=== PATIENT | female | born 2000 | race African-American/Black ===

== ENCOUNTER 2019-04-03 19:14 | Emergency (ER) | payer OTHER ==
[~2019-04-03] VITALS: Ht 167.6 cm; Wt 73.5 kg
[2019-04-03] MEDS ORDERED: IBUPROFEN 600 MG TAB PO STA (19:44)
[2019-04-03] MEDS ORDERED: KETOROLAC TROME10 MG PO (19:46)
[2019-04-03] MEDS ORDERED: IBUPROFEN 200 MG TAB ONE (19:50)
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
[2019-04-03] MEDS ORDERED: CYCLOBENZAPRINE5 MG PO (20:48)
== END 2019-04-03 21:25 | disposition home or self-care (01) ==
LOC: FSED 19:14
DX: S00.83XA Contusion of other part of head, initial encounter (principal); V43.52XA Car driver injured in collision with other type car in traffic accident, initial encounter; Y92.410 Unspecified street and highway as the place of occurrence of the external cause
CPT/HCPCS: 70486; 72125; 99283

== ENCOUNTER 2020-05-01 21:30 | Emergency (ER) | payer SELFPAY ==
[~2020-05-01] VITALS: Ht 167.6 cm; Wt 73.5 kg
[~2020-05-01 21:30] MED LIST: CYCLOBENZAPRINE5 MG PO; KETOROLAC TROME10 MG PO
[2020-05-01] MEDS ORDERED: ONDANSETRON HCL INJ 2MG/ML 2ML 2 MG/ML VIAL IV STA (21:59)
[2020-05-01] MEDS ORDERED: SODIUM CHLORIDE 0.9% 1000ML 1,000 ML IV ONE (22:00)
[2020-05-01 22:18] LABS: BASOPHILS % 0.4 % (0.0-1.0); EOSINOPHILS # (AUTO) 0.1 (0.0-0.4); EOSINOPHILS % 0.5 % (0.0-6.0); HEMATOCRIT 39.4 % (34.2-44.1); HEMOGLOBIN 12.9 g/dL (12.0-16.0); LYMPHOCYTES # (AUTO) 2.3 (1.0-3.2); LYMPHOCYTES % 20.4 % (18.0-39.1); MEAN CORPUSCULAR HGB CONC 32.7 g/dL (31-35); MEAN CORPUSCULAR VOLUME 82.4 fL (81-99); MONOCYTES # (AUTO) 0.8 (0.2-0.8); MONOCYTES % 6.7 % (4.4-11.3); NEUTROPHILS # (AUTO) 8.2 (2.1-6.9); NEUTROPHILS % 71.6 % (38.7-80.0); PLATELET COUNT 268 x10e3/uL (140-360); RED BLOOD COUNT 4.78 x10e6/uL (3.6-5.1)
[2020-05-01 22:35] LABS: ANION GAP 13.4 mmol/L (8-16); BLOOD UREA NITROGEN 5 mg/dL (7-26); BUN/CREATININE RATIO 8 (6-25); CALCIUM 9.2 mg/dL (8.4-10.2); CARBON DIOXIDE 24 mmol/L (22-29); CHLORIDE 101 mmol/L (98-107); EST GLOMERULAR FILTRATION RATE > 60 ML/MIN (60-); GLUCOSE 78 mg/dL (74-118); POTASSIUM 3.4 mmol/L (3.5-5.1); SODIUM 135 mmol/L (136-145)
[2020-05-01 22:59] LABS: BILIRUBIN,URINE NEGATIVE (NEGATIVE); CLARITY,URINE CLOUDY (CLEAR); COLOR,URINE YELLOW (YELLOW); KETONES,URINE NEGATIVE (NEGATIVE); LEUKOCYTE ESTERASE ,URINE LARGE (NEGATIVE); NITRITE,URINE NEGATIVE (NEGATIVE); PROTEIN,URINE DIPSTICK 1+ (NEGATIVE); URINE UROBILINOGEN 1 mg/dL (0.2 - 1)
--- NOTE | 2020-05-01 23:04 | Emergency Department Note ---
History of Present Illnes History of Present Illness Chief Complaint: Abdominal Complaints History of Present Illness This is a 20 year old female PRESENTS TO THE ER C/O LOWER ABD PAIN AND N/V SINCE FINDING OUT SHE WAS ; REPORTS UNABLE TO KEEP ANY FOOD OR LIQUIDS DOWN; PT 6 WEEKS ; LNMP 03/12/20L ; NAD NOTED AT THIS TIME; . Historian: Patient Arrival Mode: Car Onset (how long ago): week(s) (6) Location: LOWER ABD Quality: DISCOMFORT, VOMITING Radiation: Reports non-radiation Severity: mild Onset quality: gradual Duration (how long): week(s) (6) Progression: unchanged Chronicity: recurrent Context: Denies recent illness, Denies recent surgery Relieving factors: none Exacerbating factors: none Associated symptoms: Reports denies other symptoms Treatments prior to arrival: none Past Medical/Family History Physician Review I have reviewed the patient's past medical and family history. Any updates have been documented here. Past Medical History Recent Fever: No Clinical Suspicion of Infectio: No New/Unexplained Change in Ment: No Past Medical History: None Past Surgical History: None Other Surgery: RT ANKLE SX Social History Smoking Cessation: Former smoker Alcohol Use: None Physically hurt or threatened: No Family History Family history of heart diseas: No Other Last Tetanus: UTD Review of Systems Review of Systems Constitutional: Reports no symptoms EENTM: Reports no symptoms Cardiovascular: Reports no symptoms Respiratory: Reports no symptoms Gastrointestinal: Reports as per HPI Genitourinary: Reports as per HPI Musculoskeletal: Reports no symptoms Integumentary: Reports no symptoms Neurological: Reports no symptoms Psychological: Reports no symptoms Endocrine: Reports no symptoms Hematological/Lymphatic: Reports no symptoms Physical Exam Related Data Allergies: Coded Allergies: No Known Allergies (Unverified , 04/03/19) Triage Vital Signs Vital Signs Date Time Temp Pulse Resp B/P (MAP) Pulse Ox O2 Delivery O2 Flow Rate FiO2 05/01/20 21:55 99.0 82 16 100 Room Air Vital signs reviewed: Yes Physical Exam CONSTITUTIONAL Constitutional: Present well-developed, Present well-nourished HENT HENT: Present normocephalic, Present atraumatic, Present oropharynx clear/moist, Present nose normal HENT L/R: Present left ext ear normal, Present right ext ear normal EYES Eyes: Reports PERRL, Reports conjunctivae normal NECK Neck: Present ROM normal PULMONARY Pulmonary: Present effort normal, Present breath sounds normal CARDIOVASCULAR Cardiovascular: Present regular rhythm, Present heart sounds normal, Present capillary refill normal, Present normal rate GASTROINTESTINAL Abdominal: Present soft, Present nontender, Present bowel sounds normal GENITOURINARY Genitourinary: Present exam deferred SKIN Skin: Present warm, Present dry MUSCULOSKELETAL Musculoskeletal: Present ROM normal NEUROLOGICAL Neurological: Present alert, Present oriented x 3, Present no gross motor or sensory deficits PSYCHOLOGICAL Psychological: Present mood/affect normal, Present judgement normal Results Laboratory Result Diagram: 05/01/20220405/01/202204 Laboratory Laboratory Tests Test 05/01/20 22:50 05/01/20 22:05 Urine Color Yellow (YELLOW) Urine Clarity Cloudy (CLEAR) Urine pH 7.5 (5 - 7) Urine Specific [place] 1.025 (1.010-1.025) Urine Protein 1+ (NEGATIVE) Urine Glucose (UA) Negative (NEGATIVE) Urine Ketones Negative (NEGATIVE) Urine Blood Negative (NEGATIVE) Urine Nitrite Negative (NEGATIVE) Urine Bilirubin Negative (NEGATIVE) Urine Urobilinogen 1 mg/dL (0.2 - 1) Urine Leukocyte Esterase Large (NEGATIVE) Urine RBC 6-10 /HPF (0-5) Urine WBC >50 /HPF (0-5) Urine Epithelial Cells Moderate /LPF (NONE) Urine Bacteria Many /HPF (NONE) White Blood Count 11.40 x10e3/uL (4.8-10.8) Red Blood Count 4.78 x10e6/uL (3.6-5.1) Hemoglobin 12.9 g/dL (12.0-16.0) Hematocrit 39.4 % (34.2-44.1) Mean Corpuscular Volume 82.4 fL (81-99) Mean Corpuscular Hemoglobin 27.0 pg (28-32) Mean Corpuscular Hemoglobin Concent 32.7 g/dL (31-35) Red Cell Distribution Width 12.0 % (11.7-14.4) Platelet Count 268 x10e3/uL (140-360) Neutrophils (%) (Auto) 71.6 % (38.7-80.0) Lymphocytes (%) (Auto) 20.4 % (18.0-39.1) Monocytes (%) (Auto) 6.7 % (4.4-11.3) Eosinophils (%) (Auto) 0.5 % (0.0-6.0) Basophils (%) (Auto) 0.4 % (0.0-1.0) Neutrophils # (Auto) 8.2 (2.1-6.9) Lymphocytes # (Auto) 2.3 (1.0-3.2) Monocytes # (Auto) 0.8 (0.2-0.8) Eosinophils # (Auto) 0.1 (0.0-0.4) Basophils # (Auto) 0.0 (0.0-0.1) Absolute Immature Granulocyte (auto 0.05 x10e3/uL (0-0.1) Sodium Level 135 mmol/L (136-145) Potassium Level 3.4 mmol/L (3.5-5.1) Chloride Level 101 mmol/L (98-107) Carbon Dioxide Level 24 mmol/L (22-29) Anion Gap 13.4 mmol/L (8-16) Blood Urea Nitrogen 5 mg/dL (7-26) Creatinine 0.60 mg/dL (0.57-1.11) Estimat Glomerular Filtration Rate > 60 ML/MIN (60-) BUN/Creatinine Ratio 8 (6-25) Glucose Level 78 mg/dL (74-118) Calcium Level 9.2 mg/dL (8.4-10.2) Laboratory Tests Test 05/01/20 22:50 05/01/20 22:05 White Blood Count 11.40 x10e3/uL (4.8-10.8) Red Blood Count 4.78 x10e6/uL (3.6-5.1) Hemoglobin 12.9 g/dL (12.0-16.0) Hematocrit 39.4 % (34.2-44.1) Mean Corpuscular Volume 82.4 fL (81-99) Mean Corpuscular Hemoglobin 27.0 pg (28-32) Mean Corpuscular Hemoglobin Concent 32.7 g/dL (31-35) Red Cell Distribution Width 12.0 % (11.7-14.4) Platelet Count 268 x10e3/uL (140-360) Neutrophils (%) (Auto) 71.6 % (38.7-80.0) Lymphocytes (%) (Auto) 20.4 % (18.0-39.1) Monocytes (%) (Auto) 6.7 % (4.4-11.3) Eosinophils (%) (Auto) 0.5 % (0.0-6.0) Basophils (%) (Auto) 0.4 % (0.0-1.0) Neutrophils # (Auto) 8.2 (2.1-6.9) Lymphocytes # (Auto) 2.3 (1.0-3.2) Monocytes # (Auto) 0.8 (0.2-0.8) Eosinophils # (Auto) 0.1 (0.0-0.4) Basophils # (Auto) 0.0 (0.0-0.1) Absolute Immature Granulocyte (auto 0.05 x10e3/uL (0-0.1) Sodium Level 135 mmol/L (136-145) Potassium Level 3.4 mmol/L (3.5-5.1) Chloride Level 101 mmol/L (98-107) Carbon Dioxide Level 24 mmol/L (22-29) Anion Gap 13.4 mmol/L (8-16) Blood Urea Nitrogen 5 mg/dL (7-26) Creatinine 0.60 mg/dL (0.57-1.11) Estimat Glomerular Filtration Rate > 60 ML/MIN (60-) BUN/Creatinine Ratio 8 (6-25) Glucose Level 78 mg/dL (74-118) Calcium Level 9.2 mg/dL (8.4-10.2) Lab results reviewed: Yes Assessment & Plan Medical Decision Making MDM PT IS WITH N/V FOR PAST 6 WEEKS CBC, BMP, UA ORDERED TO EVAL FOR ELECTROLYTE ABNORMALITY, UTI, KETONES IN URINE 1 LITER NS IV BOLUS ORDERED ZOFRAN 4 MG IV ORDERED PT FOUND TO HAVE A UTI ROCEPHIN 1 GRAM IV ORDERED PT DISCHARGED WITH OMNICEF 300 MG PO BID FOR 10 DAYS ZOFRAN ODT 4 MG 1 SL Q 6 HOURS PRN NAUSEA Reassessment Reassessment time: 23:29 Reassessment NAUSEA IMPROVED AT THIS TIME Assessment & Plan Final Impression: (1) Hyperemesis gravidarum (2) UTI (urinary tract infection) Depart Disposition: HOME, SELF-CARE Last Vital Signs Date Time Temp Pulse Resp B/P (MAP) Pulse Ox O2 Delivery O2 Flow Rate FiO2 05/01/20 21:55 99.0 82 16 100 Room Air Home Meds Active Scripts Cyclobenzaprine Hcl (FLEXERIL) 5 Mg Tablet, 10 MG PO TID PRN for neck pain for 5 Days, #15 Prov:RUBY PARKER MD 04/03/19 Ketorolac Tromethamine (TORADOL) 10 Mg Tablet, 10 MG PO Q8H for pain for 5 Days, #15 Prov:RUBY PARKER MD 04/03/19 Medications in the ED Ondansetron HCl 4 mg NOW STAT IV Last administered on 05/01/20at 22:22; Admin Dose 4 MG; Start 05/01/20 at 21:59; Stop 05/01/20 at 22:12; Status DC Sodium Chloride 1,000 ml @ 999 mls/hr Q1H1M ONCE IV Last administered on 05/01/20at 22:21; Admin Dose 999 MLS/HR; Start 05/01/20 at 22:00; Stop 05/01/20 at 23:00 ROLLY SINGH MD May 01, 2020 23:04
[2020-05-01 23:24] LABS: BACTERIA,URINE MANY /HPF; EPITHELIAL CELLS,URINE MODERATE /LPF; WBC,URINE (MAN) >50 /HPF (0-5)
[2020-05-01] MEDS ORDERED: CEFTRIAXONE SOD 1 GM/NS 50 ML 50 ML IV ONE ×2 (23:41→23:45)
== END 2020-05-01 23:58 | disposition home or self-care (01) ==
LOC: ER 22:00
DX: O21.0 Mild hyperemesis gravidarum (principal); O23.41 Unspecified infection of urinary tract in pregnancy, first trimester; R10.30 Lower abdominal pain, unspecified
CPT/HCPCS: 36415; 80048; 81001; 85025; 99284; J0696; J2405; J7030